=== PATIENT | male | born 1995 | race Caucasian/White ===

== ENCOUNTER → 2016-11-21 | Outpatient (CLI) | payer BC ==
[~2016-11-21] VITALS: Ht 175.3 cm; Wt 73.5 kg
[2016-11-21 09:49] LABS: RED BLOOD COUNT 5.08 M/UL (4.20-5.50); WHITE BLOOD COUNT 7.1 K/UL (4.5-11.0)
[2016-11-21 10:10] LABS: BUN/CREATININE RATIO 10 (0-10)
== END ==
LOC: OPSV 09:00
PROVIDERS: Internal Medicine Gastroenterology
DX: K50.10 Crohn's disease of large intestine without complications (principal)
CPT/HCPCS: 36415; 80053; 85025; 86140; 96375; 96413; 96415; J1720; J1745; Q0163

== ENCOUNTER → 2017-01-21 | Outpatient (CLI) | payer BC ==
[~2017-01-21] VITALS: Ht 175.3 cm; Wt 73.5 kg
[2017-01-21 10:50] LABS: HEMOGLOBIN 15.2 gm/dl (14.0-17.5); RED BLOOD COUNT 4.91 M/UL (4.20-5.50); WHITE BLOOD COUNT 6.6 K/UL (4.5-11.0)
[2017-01-21 11:15] LABS: BUN/CREATININE RATIO 20 (0-10)
== END ==
LOC: OPSV 01-15 09:00
PROVIDERS: Internal Medicine Gastroenterology
DX: K50.10 Crohn's disease of large intestine without complications (principal)
CPT/HCPCS: 36415; 80053; 85025; 86140; 96413; 96415; J1720; J1745; Q0163